=== PATIENT | male | born 1985 | race African-American/Black ===

== ENCOUNTER 2024-10-02 14:23 | Emergency (ER) | payer SELFPAY ==
[~2024-10-02] VITALS: Ht 172.7 cm; Wt 97.0 kg
[2024-10-02 14:37] VITALS: BP 118/79; PULSE 83; RESP 16; TEMP 98.5; O2SAT 97
--- NOTE | 2024-10-02 14:41 | ED.PDOC ---
HPI Comments 39 year old male presents to the ED with chief complaint of laceration. Patient reports that he had been working on his car last night when all of a sudden, he had accidentally cut the tip of his left middle knuckle with a sharp piece of metal. Patient relays that he is not sure when his last Tetanus dose was. Patient denies any numbness, weakness, or further injury. Chief Complaint: Laceration Time Seen by MD: 14:39 Primary Care Provider: NONE Reviewed Notes: Nurses Notes, Medications, Allergies Allergies: Coded Allergies: NO KNOWN ALLERGIES (Unverified , 06/15/12) Home Meds Active Scripts Naproxen (NAPROSYN TABLET) 500 Mg Tb, 1 TAB PO BID for 10 Days, #20 TAB 1 Refill Prov:MONALISA ARRIAZA MD 10/02/24 Cefdinir (Cefdinir) 300 Mg Cap, 1 CAP PO BID for 7 Days, #14 CAP Prov:MONALISA ARRIAZA MD 10/02/24 Information Source: Patient Mode of Arrival: Ambulatory Severity: Mild Severity of Laceration: Controlled Bleeding Complexity: Simple Timing: Days Prehospital treatment: None Laceration Location: Hand, Digit #2 Mechanism: Metal Last Tetanus: Unknown Laceration Length (cm): 2 (2-1/2 cm) Skin Type: Linear Depth of Injury: SQ Tendon Injury: 0% Tender: Moderate Discharge: Serosanguinous Erythema: Localized to Wound Edges Past Medical History PAST MEDICAL HISTORY: Asthma Surgical History: Denies all surgeries Family History Family History: Unobtainable Social History Smoker: Cigarettes Alcohol: Denies ETOH Use Drugs: Marijuana Lives In: Home Constitutional: denies: chills, diaphoresis, fatigue, fever, malaise, sweats, weakness, others EENTM: denies: blurred vision, double vision, ear bleeding, ear discharge, ear drainage, ear pain, ear ringing, eye pain, eye redness, hearing loss, mouth pain, mouth swelling, nasal discharge, nose bleeding, nose congestion, nose pain, photophobia, tearing, throat pain, throat swelling, voice changes, others Respiratory: denies: cough, hemoptysis, orthopnea, SOB at rest, shortness of breath, SOB with excertion, stridor, wheezing, others Cardiovascular: denies: chest pain, dizzy spells, diaphoresis, Dyspnea on exertion, edema, irregular heart beat, left arm pain, lightheadedness, palpitations, PND, syncope, others Gastrointestinal: denies: abdomen distended, abdominal pain, blood streaked bowels, constipated, diarrhea, dysphagia, difficulty swallowing, hematemesis, me zahira, nausea, poor appetite, poor fluid intake, rectal bleeding, rectal pain, vomiting, others Genitourinary: denies: burning, dysuria, flank pain, frequency, hematuria, incontinence, penile discharge, penile sore, pain, testicle pain, testicle swelling, urgency, others Neurological: denies: dizziness, fainting, headache, left sided numbness, left sided weakness, numbness, paresthesia, pre-existing deficit, right sided numbness, right sided weakness, seizure, speech problems, tingling, tremors, weakness, others Musculoskeletal: denies: back pain, gout, joint pain, joint swelling, muscle pain, muscle stiffness, neck pain, others Integumetry: reports: laceration; denies: bruises, change in color, change in hair/nails, dryness, lesions, lumps, rash, wounds, others Allergic/Immunocompromised: denies: Difficulty Healing, Frequent Infections, Hives, Itching, others Hematologic/Lymphatic: denies: anemia, blood clots, easy bleeding, easy bruising, swollen glands, others Endocrine: denies: excessive hunger, excessive sweating, excessive thirst, excessive urination, flushing, intolerance to cold, intolerance to heat, unexplained weight gain, unexplained weight loss, others Psychiatric: denies: anxiety, bipolar disorder, depression, hopeless, panic disorder, schizophrenia, sleepless, suicidal, others All Other Systems: Reviewed and Negative Physical Exam General Appearance: No Apparent Distress, Normal HEENT: Normal ENT Inspection, PERRL/EOMI Neck: Full Range of Motion, Non-Tender, Normal, Normal Inspection Respiratory: Chest Non-Tender, Lungs Clear, No Accessory Muscle Use, No Respira tory Distress, Normal Breath Sounds Cardiovascular: No Edema, No JVD, No Murmur, No Gallop, Normal Peripheral Pulses, Regular Rate/Rhythm Breast Exam: Deferred Gastrointestinal: No Organomegaly, Non Tender, No Pulsatile Mass, Normal Bowel Sounds, Soft Genitalia: Deferred Pelvic: Deferred Rectal: Deferred Extremities: No calf tenderness, Normal capillary refill, Normal inspection, Normal range of motion, Non-tender, No pedal edema Musculoskeletal : Location: Left Extremity Location: Finger 3 (dorsal [id number] superficial laceration), Hand Apperance: Normal, Swelling, Limited ROM, Tenderness: Mild, Tenderness: Moderate Neurologic: Alert, project mgr II-XII nml as Tested, No Motor Deficits, Normal Affect, Normal Mood, No Sensory Deficits Cerebellar Function: Normal Reflexes: Normal Skin: Dry, Lacerations, Normal Color, Warm Peripheral Pulses: 1+ carotid (R), 1+ carotid (L) Lymphatic: No Adenopathy Was a procedure done? Was a procedure done?: Yes Sedation Sedation?: No Laceration Repair : Location Left 3rd knuckle Length 2.5cm Anesthetic: Lidocaine, Without epi Laceration Repair Prep: Saline, Betadine Laceration Repair Wound Comple: subcut tissue repair Laceration Repair: Number of sutures (3, 4-0 ethilon sutures), SQ, Simple Informed consent obtained: Yes Risks, benefits, and alternati: Yes Differential diagnosis Generic Laceration: Laceration X-Ray, Labs, Meds, VS Vital Signs Date Time Temp Pulse Resp B/P (MAP) Pulse Ox O2 Delivery O2 Flow Rate FiO2 10/02/24 14:37 98.5 83 16 118/79 (92) 97 98.5 X-Ray, Labs, Meds, VS Comment Course In the emergency department eventful patient came with laceration to his 3rd knuckle dorsal aspect about 2.5 cm After cleaning . laceration repaired using 3 sutures two and half cm and on laceration Patient will have gauze and Neosporin ointment dressing Time of 1ST Reevaluation: 15:39 Reevaluation 1ST: Resolved Consultation: PCP Patient Education/Counseling: Diagnosis, Treatment, Prognosis, Need For Follow Up Family Education/Counseling: Diagnosis, Treatment, Prognosis, Need For Follow Up, No Family Present Departure 1 Departure Time of Disposition: 15:50 Impression: Primary Impression: Laceration of index finger of left hand without complication Qualified Codes: S61.211A - Laceration without foreign body of left index finger without damage to nail, initial encounter Disposition: HOME / SELF CARE / HOMELESS Condition: Good Additional Instructions: Keep laceration clean and dry Apply Neosporin ointment Follow up in three days and have suture removed in 10-14 days e-Prescriptions Naproxen (NAPROSYN TABLET) 500 Mg Tb 1 TAB PO BID for 10 Days, #20 TAB 1 Refill Prov: MONALISA ARRIAZA MD 10/02/24 Cefdinir (Cefdinir) 300 Mg Cap 1 CAP PO BID for 7 Days, #14 CAP Prov: MONALISA ARRIAZA MD 10/02/24 Discharged With: Self Critical Care Note Critical Care Time?: No Stability Stability form required: No Heart Score Heart Score: Heart Score Response (Comments) Value History N/A 0 EKG N/A 0 Age <45 0 Risk Factors No known risk factors 0 Troponin N/A 0 Total 0 I personally scribed for MONALISA ARRIAZA MD ([email or web address]) on 10/02/24 at 14:41. Electronically submitted by José Carver ([email or web address]). I personally scribed for MONALISA ARRIAZA MD ([email or web address]) on 10/02/24 at 15:02. Electronically submitted by José Carver ([email or web address]). I personally scribed for MONALISA ARRIAZA MD ([email or web address]) on 10/02/24 at 15:10. Electronically submitted by José Carver ([email or web address]). I personally scribed for MONALISA ARRIAZA MD ([email or web address]) on 10/02/24 at 15:12. Electronically submitted by José Carver ([email or web address]). MONALISA ARRIAZA MD Oct 02, 2024 14:41
[2024-10-02] MEDS ORDERED: TETANUS-DIPTH-ACEL PERTUSSIS 0.5ML SYR Tdap IM ONE (15:45)
[2024-10-02] MEDS ORDERED: NAP500T PO (15:56)
[2024-10-02] MEDS ORDERED: CEFD300C2 PO (15:56)
== END 2024-10-02 16:14 | disposition home or self-care (01) ==
LOC: ER 14:23
DX: S61.211A Laceration without foreign body of left index finger without damage to nail, initial encounter (principal); J45.909 Unspecified asthma, uncomplicated; F17.210 Nicotine dependence, cigarettes, uncomplicated; W26.8XXA Contact with other sharp object(s), not elsewhere classified, initial encounter; Y93.89 Activity, other specified; Y92.89 Other specified places as the place of occurrence of the external cause; Y99.8 Other external cause status
CPT/HCPCS: 12001; 90715